=== PATIENT | female | born 1950 | race Caucasian/White ===

== ENCOUNTER 2019-11-02 10:12 | Outpatient (CLI) | payer MEDICARE, OTHER | END 2019-11-02 10:13 | disposition home or self-care (01) | LOC: CTENTCT 10:12 | PROVIDERS: ATTEND Otolaryngology Plastic Surgery within the Head & Neck | DX: J32.9 Chronic sinusitis, unspecified (principal) | CPT/HCPCS: 70486 ==

== ENCOUNTER 2023-02-16 08:10 | Outpatient (CLI) | payer MEDICARE, OTHER ==
[2023-02-16] MEDS ORDERED: Iopamidol 370 76% 100 ML VIAL ONE (10:11)
== END 2023-02-16 08:11 | disposition home or self-care (01) ==
LOC: CT 08:10
PROVIDERS: ATTEND Physician Assistant Medical
DX: R63.4 Abnormal weight loss (principal); R68.81 Early satiety
CPT/HCPCS: 74177; 82565

== ENCOUNTER 2023-03-17 08:04 | Outpatient (CLI) | payer MEDICARE, OTHER | END 2023-03-17 08:05 | disposition home or self-care (01) | LOC: BICULT 08:04 | PROVIDERS: ATTEND Physician Assistant Medical | DX: R79.89 Other specified abnormal findings of blood chemistry (principal) | CPT/HCPCS: 76705 ==